=== PATIENT | female | born 1955 | race Caucasian/White ===

== ENCOUNTER 2017-11-27 08:19 | Outpatient (CLI) | payer OTHER, SELFPAY ==
[2017-11-27 08:56] LABS: Absolute Basophil Count 0.03 k/cumm (0.0-0.2); Absolute Eosinophil Count 0.07 k/cumm (0.0-0.7); Absolute Lymphocyte Count 1.65 k/cumm (1.2-3.4); Absolute Monocyte Count 0.38 k/cumm (0.11-0.7); Absolute Neutrophil Count 2.59 k/cumm (1.2-6.7); Basophils % 0.6; Eosinophils % 1.5; HCT 40.5 % (36.0-46.0); HGB 13.9 g/dL (12.0-15.5); Mean Corp. HGB Concentration 34.3 g/dL (32.0-36.0); Mean Corpuscular Volume 90.4 fL (80-95); Mean Platelet Volume 11.4 fL (8.0-11.0); Monocytes % 8.1; Neutrophils % 54.8; Platelet Count 261 x1000/uL (130-400); RBC 4.48 m/cumm (4.00-5.20); RBC Distribution Width 12.2 % (11.7-14.6); White Blood Cell Count 4.72 k/cumm (4.4-10.8)
[2017-11-27 09:01] LABS: ALT 19 U/L (12-78); AST 14 U/L (15-37); Alkaline Phosphatase 66 U/L (46-116); Anion Gap 4.3 mmol/L (3-11); BUN 18 mg/dL (7-18); Bilirubin, Total 0.6 mg/dL (0.2-1.0); CO2 29.7 mmol/L (21.0-32.0); CREATININE 0.67 mg/dL (0.55-1.02); Calcium 8.9 mg/dL (8.5-10.1); Chloride 104 mmol/L (98-107); Glucose 91 mg/dL (70-100); Potassium 4.1 mmol/L (3.5-5.1); Sodium 138 mmol/L (136-145); Total Protein 7.6 g/dL (6.4-8.2)
== END 2017-11-27 08:20 ==
PROVIDERS: PCP Emergency Medicine; Visit Provider Internal Medicine Medical Oncology
DX: C50.919 Malignant neoplasm of unspecified site of unspecified female breast (principal)
CPT/HCPCS: 36415; 80053; 85025

== ENCOUNTER 2017-12-16 09:41 | Outpatient (CLI) | payer OTHER, SELFPAY ==
[2017-12-16 13:19] LABS: TSH 0.68 uIU/mL (0.358-3.74)
== END 2017-12-16 10:01 ==
PROVIDERS: PCP Emergency Medicine; Visit Provider Emergency Medicine
DX: E03.9 Hypothyroidism, unspecified (principal)
CPT/HCPCS: 36415; 84443

== ENCOUNTER 2017-12-16 10:12 | Outpatient (REF) | payer OTHER, SELFPAY ==
--- NOTE | 2017-12-16 09:30 | PAPFT_PTH ---
PATIENT: Shahana Braga LOC: [facility] U#:[id number] AGE/SX: 62/F ROOM: RE12/16/[address]: Johnathon Anderson DO : 1955 BED: DIS: 12/16/2017 SPEC #: [id number] RECD: 12/16/17 12:57 STATUS: VERONICA BOWLES #: [id number] NAVEEN: 12/16/17 09:[address]: Johnathon Anderson DEPT: [facility]LY [facility], [facility] Cytology RECD BY: Ana Gonzalez Tissues: 1 - CX/ENDOCX FOR PAP SMEARS Procedures: PAP THIN PREP/[facility]VM Screening HPV DNA PROBE Comments: [id number]
== END 2017-12-16 10:32 ==
LOC: LBN 10:12
PROVIDERS: PCP Emergency Medicine; Visit Provider Emergency Medicine
DX: Z12.4 Encounter for screening for malignant neoplasm of cervix (principal); Z11.51 Encounter for screening for human papillomavirus (HPV)
CPT/HCPCS: 88142; 87624

== ENCOUNTER 2018-12-30 07:00 | Outpatient (CLI) | payer OTHER, SELFPAY ==
[2018-12-30 12:04] LABS: ALT 22 U/L (14-59); AST 15 U/L (15-37); Albumin 4.1 g/dL (3.4-5.0); Alkaline Phosphatase 62 U/L (46-116); Bilirubin, Direct 0.13 mg/dL (0.00-0.20); Bilirubin, Total 0.6 mg/dL (0.2-1.0); TSH 1.55 uIU/mL (0.36-3.74); Total Protein 7.3 g/dL (6.4-8.2)
== END 2018-12-30 07:20 ==
PROVIDERS: PCP Emergency Medicine; Visit Provider Emergency Medicine
DX: K75.81 Nonalcoholic steatohepatitis (NASH) (principal); E03.9 Hypothyroidism, unspecified
CPT/HCPCS: 36415; 80076; 84443

== ENCOUNTER 2019-08-30 02:03 | Outpatient (CLI) | payer OTHER, SELFPAY ==
--- NOTE | 2019-08-30 09:32 | DI.RAD_ITS ---
EXAM: XR LUMBAR SPINE COMPLETE CLINICAL HISTORY: Low back pain,M54.5 TECHNIQUE: COMPARISON: No exams were available for comparison FINDINGS: Five views were obtained. The intervertebral disc spaces appear mildly narrowed throughout the lumba r region. There are endplate hypertrophic changes at multiple levels, most prominent at T10-T11. Th ere are mild to moderate changes of facet hypertrophy particularly in lower lumbar spine. No evidenc e of spondylolysis or spondylolisthesis. Mild DJD both SI joints noted. Minimal left convex lumbar scoliosis noted. IMPRESSION: Mild degenerative changes as described above.
== END 2019-08-30 02:23 ==
PROVIDERS: PCP Emergency Medicine; Visit Provider Emergency Medicine
DX: M54.5 Low back pain (principal); M53.3 Sacrococcygeal disorders, not elsewhere classified; M47.816 Spondylosis without myelopathy or radiculopathy, lumbar region
CPT/HCPCS: 72110

== ENCOUNTER 2020-02-29 18:26 | Outpatient (REF) | payer OTHER, SELFPAY ==
[2020-02-29 13:25] LABS: Anion Gap 9.5 mmol/L (3-11); BUN 16 mg/dL (7-18); CO2 26.5 mmol/L (21.0-32.0); CREATININE 0.84 mg/dL (0.55-1.02); Calcium 9.7 mg/dL (8.5-10.1); Chloride 101 mmol/L (98-107); Glucose 103 mg/dL (74-106); Potassium 4.2 mmol/L (3.5-5.1); Sodium 137 mmol/L (136-145); TSH 2.11 uIU/mL (0.36-3.74)
== END 2020-02-29 18:46 ==
LOC: LBN 18:26
PROVIDERS: PCP Emergency Medicine; Visit Provider Emergency Medicine
DX: I10 Essential (primary) hypertension (principal); E03.9 Hypothyroidism, unspecified
CPT/HCPCS: 80048; 84443

== ENCOUNTER 2021-04-03 03:09 | Outpatient (CLI) | payer MEDICARE, SELFPAY ==
[2021-04-03 11:03] LABS: Anion Gap 9.2 mmol/L (3-11); BUN 20 mg/dL (7-18); CO2 31.8 mmol/L (21.0-32.0); CREATININE 0.9 mg/dL (0.55-1.02); Calcium 9.4 mg/dL (8.5-10.1); Calculated LDL 176 mg/dL (<100); Chloride 101 mmol/L (98-107); Cholesterol 275 mg/dL (<200); Glucose 105 mg/dL (74-106); HDL Cholesterol 67 mg/dL (40-60); Potassium 4.1 mmol/L (3.5-5.1); Sodium 142 mmol/L (136-145); TSH 2.83 uIU/mL (0.36-3.74); Triglyceride 164 mg/dL (<150)
== END 2021-04-03 03:10 | disposition home or self-care (01) ==
PROVIDERS: PCP Emergency Medicine; Visit Provider Emergency Medicine
DX: E03.9 Hypothyroidism, unspecified (principal); I10 Essential (primary) hypertension
CPT/HCPCS: 36415; 80048; 80061; 84443

== ENCOUNTER → 2021-11-16 00:03 | Outpatient (CLI) | payer MEDICARE, SELFPAY ==
--- NOTE | 2021-11-16 07:45 | DI.DEXA_ITS ---
Exam(s) XR DEXA BONE DENSITY W/WO SURENDRA EXAM: XR DEXA BONE DENSITY W/WO SURENDRA CLINICAL HISTORY: SCREENING FOR OSTEOPOROSIS IN POSTMENOPAUSAL WOMAN,Z78.0 TECHNIQUE: Holodelicious C densitometer analysis of left hip, lumbar spine and left forearm. COMPARISON: CR XR LUMBAR SPINE COMPLETE from 08/30/2019 FINDINGS: Lateral view of the thoracic and lumbar spine shows no evidence of compression fractures. Bone mineral density measurements of the lumbar spine correspond to a total T-score of 0.5, in the n ormal range. Bone mineral density measurements of the left hip correspond to a total T-score of -0.7. The femora l neck T-score is -1.4, in the osteopenic range.. The left forearm bone mineral density measurements correspond to a T-score of the distal 3rd of -1.7, in the osteopenic range. . IMPRESSION: Osteopenia of the left forearm and left hip. Normal bone mineral density of the lumbar spine.
== END ==
PROVIDERS: PCP Nurse Practitioner; Visit Provider Nurse Practitioner
DX: Z78.0 Asymptomatic menopausal state (principal); Z13.820 Encounter for screening for osteoporosis; M85.88 Other specified disorders of bone density and structure, other site
CPT/HCPCS: 77080

== ENCOUNTER → 2021-12-27 03:02 | Outpatient (CLI) | payer MEDICARE, SELFPAY ==
--- NOTE | 2021-12-27 07:45 | DI.RAD_ITS ---
Exam(s) XR ANKLE RT COMPLETE EXAM: XR ANKLE RT COMPLETE CLINICAL HISTORY: continued pain medial malleolus after fall,m25.571. TECHNIQUE: 2D digital imaging was performed of the right ankle. Three images were obtained. AP, la teral and oblique views were obtained. COMPARISON: No exams were available for comparison FINDINGS: BONES: No acute fracture is present. No bony destructive lesion is seen. There is a moderate plantar calcaneal spur. Calcification is seen at the Achilles insertion site. Two orthopedic screws are se en in the distal aspect of the 1st metatarsal. JOINTS: The ankle mortise is normally aligned. Mild degenerative changes are seen at the ankle. SOFT TISSUE: Normal. IMPRESSION: No acute abnormality. DATA REPOSITORY: RADIATION DOSE DELIVERED:
--- NOTE | 2021-12-27 07:45 | DI.RAD_ITS ---
Exam(s) XR CERVICAL SP COMP W FLEX/EXT EXAM: XR CERVICAL SP COMP W FLEX/EXT CLINICAL HISTORY: c/o neck pain, stiffness after fall,m54.2. TECHNIQUE: 2D digital imaging was performed. Nine images were obtained. AP, odontoid, lateral, flexi on, extension and bilateral oblique images were obtained. COMPARISON: No exams were available for comparison FINDINGS: The odontoid is intact. The lateral masses are well aligned. There is normal alignment of the cervi [place] spine. Degenerative disc disease is seen at C5-C6. There is facet arthropathy throughout the cer vical spine, right greater than left. The findings are most marked at C3-4 and C4-C5. No acute fract ure or subluxation is present. No significant neural foraminal stenosis is present. The cervical thor acic junction is not well visualized. The prevertebral soft tissues are unremarkable. Lung apices ar e clear. IMPRESSION: Moderate cervical spondylosis. DATA REPOSITORY: RADIATION DOSE DELIVERED:
== END ==
PROVIDERS: PCP Nurse Practitioner; Visit Provider Nurse Practitioner Family
DX: M25.571 Pain in right ankle and joints of right foot (principal); M47.812 Spondylosis without myelopathy or radiculopathy, cervical region
CPT/HCPCS: 72052; 73610

== ENCOUNTER 2022-01-16 02:19 | Outpatient (CLI) | payer MEDICARE, SELFPAY ==
[2022-01-16 13:02] LABS: Calculated LDL 159 mg/dL (<100); Cholesterol 257 mg/dL (<200); HDL Cholesterol 69 mg/dL (40-60); Triglyceride 145 mg/dL (<150)
== END 2022-01-16 02:20 | disposition home or self-care (01) ==
LOC: LOS 02:19
PROVIDERS: PCP Nurse Practitioner; Visit Provider Nurse Practitioner
DX: E03.9 Hypothyroidism, unspecified (principal)
CPT/HCPCS: 36415; 80061

== ENCOUNTER 2022-01-23 11:38 | Outpatient (CLI) | payer MEDICARE, SELFPAY ==
--- NOTE | 2022-01-23 11:30 | RT.EKG_ITS ---
APPROVED REPORT Exam: Resting ECG Reason for Exam: Fluttering heart Patient Location: O HR:62 bpm ECG Measurements Heart Rate 62 AXIS IL 189 P 50 QRSd 104 QRS 50 QT 448 T 36 QTc 455 Conclusion Sinus rhythm...normal P axis, V-rate 50- 99 Normal Electrocardiogram
== END 2022-01-23 11:39 | disposition home or self-care (01) ==
LOC: DI.CM 11:39
PROVIDERS: PCP Nurse Practitioner; Visit Provider Nurse Practitioner Family
DX: I49.8 Other specified cardiac arrhythmias (principal)
CPT/HCPCS: 93010

== ENCOUNTER 2022-01-24 10:17 | Outpatient (RCR) | payer MEDICARE, SELFPAY ==
--- NOTE | 2022-01-24 10:15 | HOLTER_ITS ---
APPROVED REPORT Conclusion This is a 48-hour Holter monitor Predominant rhythm is sinus with an average heart rate of 71. Minimum was 61, maximum 98 There were very rare atrial and ventricular ectopic beats There was 1 supraventricular triplet There was no atrial fibrillation, no high-grade AV block, no pauses greater than 3 seconds
== END 2022-01-28 23:59 | disposition home or self-care (01) ==
LOC: CARDOPNVT 10:17
PROVIDERS: PCP Nurse Practitioner; Visit Provider Nurse Practitioner Family
DX: R00.2 Palpitations (principal); I49.8 Other specified cardiac arrhythmias
CPT/HCPCS: 93227; 93225; 93226

== ENCOUNTER 2022-04-24 21:49 | Outpatient (REF) | payer MEDICARE, SELFPAY ==
[2022-04-24 23:18] LABS: Anion Gap 11.6 mmol/L (3-11); BUN 16 mg/dL (7-18); CO2 26.4 mmol/L (21.0-32.0); CREATININE 0.8 mg/dL (0.55-1.02); Calcium 10.4 mg/dL (8.5-10.1); Chloride 100 mmol/L (98-107); Estimated GFR 81.21 (mL/min/1.73m2); Glucose 99 mg/dL (74-106); Sodium 138 mmol/L (136-145)
== END 2022-04-24 21:50 | disposition home or self-care (01) ==
LOC: LBN 21:49
PROVIDERS: PCP Nurse Practitioner Family; Visit Provider Nurse Practitioner Family
DX: I10 Essential (primary) hypertension (principal)
CPT/HCPCS: 80048

== ENCOUNTER 2022-05-08 09:34 | Outpatient (CLI) | payer MEDICARE, SELFPAY ==
--- NOTE | 2022-05-08 09:00 | DI.RAD_ITS ---
Exam(s) XR ANKLE RT COMPLETE XR FOOT RT COMPLETE EXAM: XR FOOT RT COMPLETE CLINICAL HISTORY: R ankle pain, possible tarsal tunnel, M25.571. TECHNIQUE: 2D digital imaging was performed of the right foot. Six images were obtained. AP, obliq ue and lateral views were obtained. COMPARISON: CR XR ANKLE RT COMPLETE from 12/27/2021 FINDINGS: BONES: No acute fracture is present. No bony destructive lesion is seen. Stable postsurgical changes are seen in the 1st metatarsal bone. Degenerative changes are seen at the 1st metatarsophalangeal sheela int with joint space narrowing and bony hypertrophy. There is a large plantar calcaneal spur. There is a small enthesophyte at the posterior calcaneus. JOINTS: No dislocation present. The ankle joint is well maintained. The bones are normally mineraliz ed and intact. SOFT TISSUE: Normal. IMPRESSION: 1. No acute abnormality. 2. Degenerative changes of the right foot. 3. Stable postsurgical changes of the right foot. DATA REPOSITORY: RADIATION DOSE DELIVERED:
== END 2022-05-08 09:54 ==
LOC: DI 09:36
PROVIDERS: PCP Nurse Practitioner Family; Visit Provider Podiatrist Foot & Ankle Surgery
DX: M19.071 Primary osteoarthritis, right ankle and foot
CPT/HCPCS: 73610; 73630

== ENCOUNTER 2023-01-09 01:05 | Outpatient (CLI) | payer MEDICARE, SELFPAY ==
[2023-01-09 13:01] LABS: ALT 34 U/L (14-59); AST 18 U/L (15-37); Albumin 3.9 g/dL (3.4-5.0); Alkaline Phosphatase 62 U/L (46-116); Anion Gap 7.6 mmol/L (3-11); BUN 16 mg/dL (7-18); Bilirubin, Total 0.4 mg/dL (0.2-1.0); CO2 27.4 mmol/L (21.0-32.0); CREATININE 0.8 mg/dL (0.55-1.02); Calcium 9.5 mg/dL (8.5-10.1); Calculated LDL 75 mg/dL (<100); Chloride 102 mmol/L (98-107); Cholesterol 167 mg/dL (<200); Estimated GFR 80.71 (mL/min/1.73m2); Glucose 104 mg/dL (74-106); HDL Cholesterol 59 mg/dL (40-60); Potassium 3.8 mmol/L (3.5-5.1); Sodium 137 mmol/L (136-145); Total Protein 7.6 g/dL (6.4-8.2); Triglyceride 168 mg/dL (<150)
== END 2023-01-09 01:06 | disposition home or self-care (01) ==
LOC: LOS 01:05
PROVIDERS: PCP Nurse Practitioner Family; Visit Provider Nurse Practitioner Family
DX: E78.5 Hyperlipidemia, unspecified (principal)
CPT/HCPCS: 36415; 80053; 80061

== ENCOUNTER 2023-09-15 09:19 | Outpatient (CLI) | payer MEDICARE, SELFPAY ==
[2023-09-15 14:23] LABS: Abs Immature Grans 0.02 10^3/uL (0.0-0.06); Absolute Basophil Count 0.11 10^3/uL (0.0-0.2); Absolute Eosinophil Count 1.13 10^3/uL (0.0-0.7); Absolute Lymphocyte Count 2.29 10^3/uL (1.2-3.4); Absolute Monocyte Count 0.51 10^3/uL (0.1-0.8); Absolute Neutrophil Count 5.45 10^3/uL (1.2-6.7); Basophils % 1.2 %; Eosinophils % 11.9 %; HCT 39.2 % (36.0-46.0); Immature Grans % 0.2 %; Lymphocytes % 24.1 %; MCH 30.1 pg (27.0-33.0); MCHC 33.2 % (32.0-36.0); MCV 91 fL (80-95); MPV 10.9 fL (8.0-11.0); Monocytes % 5.4 %; Neutrophils % 57.2 %; Platelet Count 261 10^3/uL (130-400); RBC 4.32 10^6/uL (3.93-5.22); RDW 12.6 % (11.7-14.6); RDW-SD 42.2 fL; WBC 9.51 10^3/uL (4.4-10.8)
[2023-09-15 14:32] LABS: Bilirubin Negative (Negative); Blood Negative (Negative); Clarity Sl Cloudy (Clear); Glucose Negative (Negative); Ketones Trace mg/dL (Negative); Leukocyte Esterase Negative (Negative); Nitrite Negative (Negative); Specific Gravity 1.025 (1.005-1.025)
[2023-09-15 14:52] LABS: ALT 79 U/L (14-59); AST 41 U/L (15-37); Albumin 3.8 g/dL (3.4-5.0); Alkaline Phosphatase 91 U/L (46-116); Anion Gap 9.4 mmol/L (3-11); BUN 10 mg/dL (7-18); Bilirubin, Total 0.7 mg/dL (0.2-1.0); C-Reactive Protein 15.62 mg/dL (<or=0.5); CO2 29.6 mmol/L (21.0-32.0); CREATININE 0.8 mg/dL (0.55-1.02); Calcium 9.3 mg/dL (8.5-10.1); Chloride 101 mmol/L (98-107); Estimated GFR 80.21 (mL/min/1.73m2); Glucose 108 mg/dL (74-106); Potassium 4.2 mmol/L (3.5-5.1); Sodium 140 mmol/L (136-145)
== END 2023-09-15 09:20 | disposition home or self-care (01) ==
LOC: LBO 09-16 09:19
PROVIDERS: PCP Nurse Practitioner Family; Visit Provider Family Medicine
DX: R10.30 Lower abdominal pain, unspecified (principal); E03.9 Hypothyroidism, unspecified
CPT/HCPCS: 36415; 80053; 81003; 84443; 85025; 86140

== ENCOUNTER → 2023-09-16 10:06 | Outpatient (CLI) | payer MEDICARE, SELFPAY ==
--- NOTE | 2023-09-16 09:15 | DI.CT_ITS ---
Exam(s) CT ABDOMEN PELVIS W EXAM: CT ABDOMEN PELVIS W CLINICAL HISTORY: R/O diverticulitis R10.30 LOWER ABD PAIN. TECHNIQUE: Imaging Protocol: Axial computed tomography images with coronal and sagittal reformatted images were created and reviewed CONTRAST MATERIAL: Intravenous: Omnipaque-350 100cc Oral: Yes. Oral contrast was administered for bowel opacification COMPARISON: No exams were available for comparison FINDINGS: VISUALIZED LUNG BASES: No nodules nor pleural effusions evident. ABDOMEN: There is no ascites. LIVER: Liver is hypodense implying steatosis. There no discrete focal hepatic lesions. No dilated i ntrahepatic ducts. GALLBLADDER/BILIARY: No obvious gallbladder pathology. CBD is not dilated. PANCREAS: No evidence of pancreatic mass nor dilatation of the pancreatic duct. SPLEEN: Spleen is not enlarged. No obvious intrasplenic lesions. Splenic and portal veins are paten t. ADRENALS: There are no significant adrenal masses. KIDNEYS:Small benign cyst in superior aspect of the left kidney noted. Does not require further work up. No solid renal masses. No calculi nor hydronephrosis.. ABDOMINAL AORTA: Abdominal aorta is not enlarged. LYMPH NODES:There is no retroperitoneal nor paraaortic adenopathy. ABDOMINAL WALL: No evidence of significant anterior abdominal wall nor inguinal hernia. PELVIS: GI: No evidence of appendicitis.There is sigmoid diverticuli and there is in evidence of acute divert iculitis. The culprit diverticulum is on the posterior wall of the sigmoid and there is abundant kayleigh rounding streaking but no free air nor abscess at this time. LYMPH NODES: There is no intrapelvic nor inguinal adenopathy. REPRODUCTIVE: Uterus and adnexal regions appear unremarkable. URINARY BLADDER: Mild uniform thickening of the urinary bladder wall. No masses nor clots nor is int raluminal calculi and no gas within the lumen to suggest fistulous communication from the affected si gmoid. OSSEOUS: No fractures and no significant osseous lesions. IMPRESSION: 1. Findings are consistent with significant acute diverticulitis of the sigmoid. There is abundant s treaking around the culprit sigmoid diverticulum but no formed abscess. No free air. RADIATION DOSE DELIVERED: 1,244.86mGy.cm Total DLP DATA REPOSITORY: All CT scans at this facility are submitted to the National Radiology Data Registry (NRDR) Dose Index Registry (DIR) with the [employer] (ACR). RADIATION OPTIMIZATION: All CT scans at this facility use at least one of these dose optimization te chniques: automated exposure control; mA and/or kV adjustment per patient size (includes targeted exa ms where dose is matched to clinical indication); or iterative reconstruction.
[2023-09-16] MEDS: Omnipaque 350 MG/ML 500 ML BTL-Imaging package 100 ML IJ (12:45)
[2023-09-16] MEDS: Normal Saline - Diluent 50 ML VIAL IJ (12:47)
== END ==
PROVIDERS: PCP Nurse Practitioner Family; Visit Provider Family Medicine
DX: K57.32 Diverticulitis of large intestine without perforation or abscess without bleeding (principal)
CPT/HCPCS: 74177

== ENCOUNTER 2023-11-18 21:32 | Outpatient (REF) | payer MEDICARE, SELFPAY ==
[2023-11-18 22:58] LABS: Hemoglobin A1C 5.8 % (<5.7)
[2023-11-18 23:04] LABS: ALT 30 U/L (14-59); AST 19 U/L (15-37); Albumin 4.3 g/dL (3.4-5.0); Alkaline Phosphatase 65 U/L (46-116); Anion Gap 10.4 mmol/L (3-11); BUN 16 mg/dL (7-18); Bilirubin, Total 0.66 mg/dL (0.2-1.0); CO2 27.6 mmol/L (21.0-32.0); CREATININE 0.8 mg/dL (0.55-1.02); Calcium 9.6 mg/dL (8.5-10.1); Calculated LDL 113 mg/dL (<100); Chloride 103 mmol/L (98-107); Cholesterol 223 mg/dL (<200); Estimated GFR 80.21 (mL/min/1.73m2); Glucose 98 mg/dL (74-106); HDL Cholesterol 71 mg/dL (40-60); Sodium 141 mmol/L (136-145); Total Protein 7.3 g/dL (6.4-8.2); Triglyceride 195 mg/dL (<150)
== END 2023-11-18 21:33 | disposition home or self-care (01) ==
LOC: NCHCN 21:32
PROVIDERS: PCP Nurse Practitioner Family
DX: E78.5 Hyperlipidemia, unspecified (principal); R73.9 Hyperglycemia, unspecified
CPT/HCPCS: 80053; 80061; 83036

== ENCOUNTER → 2023-12-26 10:10 | Outpatient (BNVA) | payer MEDICARE, SELFPAY | PROVIDERS: PCP Nurse Practitioner Family; Referring Provider Nurse Practitioner Family; Visit Provider Physical Therapy Assistant | DX: Z12.11 Encounter for screening for malignant neoplasm of colon (principal); Z86.010 Personal history of colon polyps ==

== ENCOUNTER 2023-12-26 14:46 | Outpatient (CLI) | payer MEDICARE, SELFPAY ==
[2023-12-26 15:29] LABS: D-Dimer 368 ng/mlFEU (<500)
== END 2023-12-26 14:47 | disposition home or self-care (01) ==
LOC: LBO 14:48
PROVIDERS: PCP Nurse Practitioner Family; Visit Provider Nurse Practitioner Family
DX: Z12.11 Encounter for screening for malignant neoplasm of colon (principal)
CPT/HCPCS: 85379

== ENCOUNTER 2024-01-16 09:11 | Day surgery (SDC) | payer MEDICARE, SELFPAY ==
--- NOTE | 2024-01-15 19:34 | PDOC.DSDIS_ITS ---
Date of service: 01/16/24 Time of Service: 11:14 Discharge Plan Disposition Patient Disposition: Home Condition: Good Discharge Details Reason For Visit: screening colonoscopy Attending Provider: Fan Hutson Primary Care Provider: Augustine Vidal Home Meds and New Rx's Prescriptions: Continued rosuvastatin 20 mg tablet 20 mg PO DAILY Qty: 90 4RF L-theanine capsule 200 mg PO turmeric root extract 500 mg tablet 1,000 mg PO cholecalciferol (vitamin D3) 10 mcg (400 unit) capsule 10 mcg PO DAILY calcium carbonate [Calcium 600] 600 mg calcium (1,500 mg) tablet 1,200 mg PO .take 1/2 pill daily Probiotic 3 billion cell capsule See Rx Instructions PO DAILY Rx Instructions: name of the product is [facility] Women's 50+ Daily Form (gkb) 1 EACH tablet 1 ea PO DAILY Patient Comments: 07/24/16 takes prn.md levothyroxine 75 mcg tablet See Rx Instructions .ROUTE .COMPLEX Qty: 90 0RF Dose Instruction: TAKE 1 TABLET DAILY Rx Instructions: TAKE 1 TABLET DAILY lisinopril 10 mg tablet 10 mg PO DAILY Qty: 90 4RF hydrochlorothiazide 12.5 mg tablet See Rx Instructions .ROUTE .COMPLEX Qty: 90 3RF Dose Instruction: TAKE 1 TABLET DAILY Rx Instructions: TAKE 1 TABLET DAILY metoprolol succinate [Toprol XL] 25 mg tablet extended release 24 hr 25 mg PO DAILY Qty: 90 3RF Discontinued bisacodyl [Dulcolax (bisacodyl)] 5 mg tablet,delayed release (DR/EC) 5 mg PO ONCE Qty: 4 0RF Rx Instructions: Take per colonoscopy instructions provided by ordering providers office polyethylene glycol 3350 17 gram/dose powder 17 g PO ONCE Qty: 238 0RF Rx Instructions: Take per colonoscopy instructions provided by ordering providers office Discharge Instructions Instructions: Colon polyps, Diverticulosis Additional Instructions: Dot, I hope you are comfortable during the procedure today. I really enjoyed talking to you beforehand, and hope you have a great day after this. I did find and removed 2 polyps today. Both of these are small, and neither one of them appears worrisome to the naked eye. Similar to your previous colonoscopies, these will be sent off for the pathologist to review. We will use that information to guide the timing of your next colonoscopy. Incidentally, he also have some diverticulosis. These are little pockets are weak spots in the wall of the colon. They can get infected or inflamed, and when that occurs, we refer to it as diverticulitis. Patients typically experience that a sharp left-sided abdominal pain that sometimes radiates across the middle. Usually patients feel pretty ill when that happens. Often times is treated with antibiotics, but diet and bowel rest can also be very helpful and effective. I attached some basic information here about colon polyps as well as diverticulosis. If you have any questions at all, please do not hesitate to ask, otherwise let you know once we have the results. 1. If tolerated, consume a soft, low fiber diet for 1-2 days. 2. Do not drive, drink alcohol, operate machinery, make critical decisions, or do activities that require coordination or balance for 24 hours. 3. Because air was put into your colon during the procedure, expelling air from your rectum (passing gas or farting) is normal. 4. You may not have a bowel movement for 1-3 days because of the colonoscopy prep. This is normal. 5. Go directly to the emergency room if you notice any of the following: Develop chills (warm to touch), or if you have a thermometer and your temperature is above 101 Difficulty breathing or difficultly swallowing Persistent vomiting Severe abdominal pain, other than gas cramps Severe chest pain Black, tarry stools Any bleeding ? exceeding one tablespoon 6. Call your physician if the site where your intravenous was started becomes red, swollen, painful, and warm to touch. 7. Your physician has reviewed your pre-procedure medications. Please continue to take those medications as previously ordered. You will be given specific information/education regarding any changes to your medications before leaving. Activity:: Activity as Tolerated Diet:: As Tolerated Discharge Orders Discharge Orders: Discharge Order (Routine); Ordered 01/15/24 Ordered By: Fan Hutson DS: Diagnosis Discharge Diagnosis (1) Encounter for screening colonoscopy: Asessment and Plan: Follow-up on polypectomy results
--- NOTE | 2024-01-15 19:36 | W.COLOREPORT ---
Date of service: 01/16/24 Time of Service: 11:18 Colonoscopy Report Date of procedure: 01/16/24 Pre-op diagnosis general: screening colonoscpoy Procedure: colonoscopy Surgeon: Fan Hutson Anesthesia Type: General:No Airway Complications: None Disposition: same day Indications: Shahana is a 68 year old woman with a history of adenomatous polyps who needs her next screening colonoscopy Prep: Miralax/Dulcolax Procedure Start Time: 10:46 Procedure End Time: 11:07 Retraction Time: 10 Findings: Sigmoid diverticulosis, 0.25 cm polyp at 45 cm, 0.5 cm polyp at 35 cm Procedure Description: After the induction of anesthesia, and with the patient in left lateral decubitus position, I began by performing an external anorectal exam.? Perineum and skin were normal, as was the anal verge.?? Next, I performed a digital rectal exam.? I did appreciate any abnormal findings.? Next, I advanced a colonoscope into the rectal vault.? I performed retroflexion.? I this appeared normal.? Using insufflation, I then advanced the colonoscope beyond the rectal folds and into the sigmoid colon before advancing towards the cecum.? There is some sigmoid diverticulosis. The quality of the prep was outstanding.? The scope was noted to be in the cecum by identification of the ileocecal valve and appendiceal orifice.? I then began withdrawing the colonoscope using repeated irrigation as necessary for full evaluation of the colonic mucosa. Around 45 cm from the anal verge I identified a 0.25 cm polyp. ?It appeared flat in character. ?I was able to remove this with a cold forcep polypectomy. ?I examined the site, and there was minimal bleeding. ?Once this was completed, I continued to withdraw the scope and examine the remainder of the colonic mucosa.? I found another polyp at 35 cm from the anal verge. This was a little larger, may be closer to 0.5 cm. This was also a little more pedunculated. This was removed in piecemeal with cold forceps. Resection was complete. There was minimal bleeding. Once the scope was withdrawn to the level of the rectum, great care was taken to examine portions of the rectal folds.? Finally, the scope was withdrawn and the patient was brought to the same-day surgery recovery unit as the anesthetic wore off. ?The findings and instructions were shared with the patient prior to discharge. [place] Bowel Prep [place] Bowel Prep Right Colon: 3 Left Colon: 3 Transverse Colon: 3 Total Score: 9
[2024-01-16 09:45] VITALS: BP 122/74; PULSE 68; RESP 16; TEMP 36.9; O2SAT 99
--- NOTE | 2024-01-16 10:03 | ANES.PREOP_ITS ---
General Info Date of Service Date Performed: 01/16/24 Height: 5 ft 5 in Weight: 88.6 kg Body Mass Index (BMI): 32.5 Surgical Procedure: Operation Date: 01/16/24 10:35 Proposed Procedure Side Surgeon elida Hutson MD Meds Allergies and Home Medications Allergies Allergy/AdvReac Type Severity Reaction Status Date / Time amoxicillin Allergy Intermediate HIVES/RASH Verified 01/16/24 09:37 Penicillins Allergy Intermediate Skin Rash Verified 01/16/24 09:37 Sulfa (Sulfonamide Allergy Intermediate Hives Verified 01/16/24 09:37 Antibiotics) Home Medication ?Medication ?Instructions ?Recorded multivitamin with [id number] 1 ea PO DAILY 06/12/12 400 mcg-120 mg tablet (Women's 50+ Daily Formula (with ginkgo)) L-theanine 200 mg PO 09/27/21 turmeric root extract 500 mg tablet 1,000 mg PO 09/27/21 cholecalciferol (vitamin D3) 10 10 mcg PO DAILY 04/24/22 mcg (400 unit) capsule lactobacillus combination no.4 3 See Rx Instructions PO DAILY 05/08/22 billion cell capsule (Probiotic) levothyroxine 75 mcg tablet See Rx Instructions .Route 04/01/23 .COMPLEX #90 tabs calcium carbonate (Calcium 600) 1,200 mg PO .take 1/2 pill daily 08/18/23 rosuvastatin 20 mg tablet 20 mg PO DAILY #90 tabs 08/18/23 lisinopril 10 mg tablet 10 mg PO DAILY #90 tabs 11/13/23 hydrochlorothiazide 12.5 mg tablet See Rx Instructions .Route 11/18/23 .COMPLEX #90 tabs metoprolol succinate 25 mg 25 mg PO DAILY #90 tab-caps 12/08/23 tablet,extended release 24 hr (Toprol XL) Current Visit Medications: Current Medications Generic Name Dose Route Start Last Admin Trade Name Freq PRN Reason Stop Dose Admin Hyoscyamine Sulfate 0.125 mg 01/15/24 19:37 Hyoscyamine 0.125 Mg Sl/Oral/Chew SL 02/14/24 19:36 DIRECTED PRN Ringer's Solution 1,000 mls @ 80 mls/hr 01/16/24 06:00 IV 02/14/24 23:59 INFUSION JAYLYN IV Miscellaneous Supplies 1 each 01/16/24 06:00 Iv Access IV 02/14/24 23:59 DIRECTED [facility] Ondansetron HCl 4 mg 01/15/24 19:37 Ondansetron 4 Mg/2 Ml Vial IVP 02/14/24 19:36 Q4H PRN PRN Nausea / Vomiting Sodium Chloride 0 ml 01/16/24 06:00 Normal Saline Flush 10 Ml Syr IV 02/14/24 23:59 PRN PRN Sodium Chloride 0 ml 01/16/24 06:00 Normal Saline 10 Ml Vial IJ 02/14/24 23:59 DIRECTED PRN Sterile Water 0 ml 01/16/24 06:00 Water,Injection,Sterile 10 Ml Vial IJ 02/14/24 23:59 DIRECTED PRN PFSH Active Problems Active Problems: Problem Status Onset Code Right leg pain Acute M79.604 Acute diverticulitis of intestine Acute K57.92 Raynauds phenomenon Acute I73.00 Lower abdominal pain Acute R10.30 Screening for colorectal cancer Acute Z12.11, Z12.12 Depression Chronic F32.A Low back pain Acute M54.5 Essential hypertension Acute 05/07/13 I10 Hypothyroidism Acute E03.9 FRYE (nonalcoholic steatohepatitis) Acute 05/10/13 K75.81 Dysphagia Acute R13.10 ROSENDO on CPAP Chronic G47.33, Z99.89 Hyperlipidemia Acute E78.5 Neck pain Acute M54.2 Right ankle pain Acute M25.571 Tarsal tunnel syndrome Acute G57.50 Left otitis externa Acute H60.92 Medical History Medical History Encounter for screening colonoscopy Polyp of colon, adenomatous 07/11/12 DR. PRABHA KEARNEY; TUBULAR ADENOMA 09/30/18 DR. PRABHA KEARNEY; TUBULAR ADENOMA Malignant neoplasm of female breast right breast; + DCIS ; radiation; IV Herceptin q/3 weeks Surgical History Surgical History History of arthroscopy of knee L knee, per pt History of bilateral ligation of fallopian tubes Reconstruction BREAST; S/P LUMPECTOMY FOR CA Endometrial Ablation Colonoscopy - IV Sedation (07/10/12) DR. PRABHA KEARNEY; TUBULAR ADENOMA Breast, Lumpectomy (~03/2007) Bilateral salpingectomy with oophorectomy BUNIONECTOMY R. foot, per pt. Arthroplasty of knee LEFT 01/14/24: Pt denies. -BR Tobacco Smoking/Tobacco Use Status: Never Passive smoking exposure: Yes Alcohol Alcohol Intake: current Alcohol intake frequency: 0-2 drinks per day Alcohol type: wine and hard liquor Substance Use Substance use: Never Substance use type: does not use Vital Signs and Lab Results Vital Signs Most Recent Vital Signs in EMR: Most Recent Vital Signs Temp Pulse Resp BP Pulse Ox 36.9 C 68 16 122/74 99 01/16/24 09:45 01/16/24 09:45 01/16/24 09:45 01/16/24 09:45 01/16/24 09:45 Lab Results Blood Type / Crossmatch: No Data to Display Complete Blood Count: No Data to Display Complete Metabolic Panel: No Data to Display Liver Function Panel: No Data to Display Coagulation Panel: D-Dimer 368 ng/mlFEU (<500) 12/26/23 14:50 Cardiac Panel: No Data to Display Arterial Blood Gas: No Data to Display Venous Blood Gas: No Data to Display Pancreas Panel: No Data to Display Thyroid Panel: No Data to Display Infectious Disease: No Data to Display Blood Cultures: No Data to Display Toxicology Panel: No Data to Display Imaging and Studies Imaging and Studies Study information below may be from another EMR and interpreted by another provider. Please see original notes in EMR for more complete details. EKG Summary: 01/23/22: Exam: Resting ECG Reason for Exam: Fluttering heart Patient Location: O HR:62 bpm ECG Measurements Heart Rate 62 AXIS MN 189 P 50 QRSd 104 QRS 50 QT 448 T36 QTc 455 Conclusion Sinus rhythm...normal P axis, V-rate 50- 99 Normal Electrocardiogram Anesthesia Assessment and Plan Anesthesia History Personal History: No History of Anesthesia Complications Family History: No Family History of Anesthesia Complications Exercise Tolerance Exercise Tolerance: Metabolic Equivalents>4 Pertinent Negatives Pertinent Negatives: No Symptoms of GERD, No Major Cardiovascular Symptoms or Complaints and No Major Pulmonary Symptoms or Complaints Cardiac & Pulmonary Exam Cardiac Exam: Normal S1/S2 Heart Sounds Pulmonary Exam: Clear Bilateral Breath Sounds Implantable Cardiac Device Does patient have a Pacemaker or an ICD?: No Airway Exam Known Difficult Airway: No Mallampati Class: 1 Mouth Opening: Normal (> 3cm) Thyromental Distance: Greater than 3 cm Neck Range of Motion: Full ROM Neck Circumference: Normal Teeth Condition: Normal Dentition ASA Classification ASA Score: ASA 3 Emergency Case?: No NPO Status NPO Status: NPO Clears >2 hours, Solids >8 hours Anesthesia Plan Resuscitation Status: Full Code Anesthesia Technique: General Anesthesia Airway Planned: Natural Airway Monitors Used: Standard Monitors
[2024-01-16 10:07] VITALS: BMI 32.5
[2024-01-16] MEDS: Lactated Ringers 1,000 ML 80 ML IV (10:09)
--- NOTE | 2024-01-16 11:00 | BOWEL_PTH ---
PATIENT: Shahana Braga LOC: [facility] U#:[id number] AGE/SX: 68/F ROOM: RE01/16/[address]: Fan Hutson MD : 1955 BED: DIS: 01/16/2024 SPEC #: [id number] RECD: 01/16/24 12:49 STATUS: VERONICA REQ #: [id number] NAVEEN: 01/16/24 11:[address]: Fan Hutson DEPT: Surgical Specimen RECD BY: Ana Gonzalez ENTERED: 01/16/24 12:50 SP TYPE: Bowel OTHR DR: Augustine Leigh DNP Tissues: 1 - BIOPSY BOWEL 2 - BIOPSY BOWEL Procedures: GROSS AND MICRO LEVEL 4 Comments: [id number]
[2024-01-16 11:12] VITALS: BP 147/78; PULSE 77; RESP 18; TEMP 36.8; O2SAT 97
--- NOTE | 2024-01-16 11:24 | W.ANESPOSTOP ---
Postoperative Evaluation Date, Time and Location Date Performed: 01/16/24 Time Performed: 11:15 Patient Location: Day Surgery Unit Vital Signs Most Recent Imported Vital Signs: Most Recent Vital Signs Temp Pulse Resp BP Pulse Ox 36.8 C 77 18 147/78 H 97 01/16/24 11:12 01/16/24 11:12 01/16/24 11:12 01/16/24 11:12 01/16/24 11:12 Pain Score Most Recent Pain Score: Most Recent Pain Score Pain Level 0 01/16/24 11:12 Assessment Mental Status: Awake (Alert & Oriented to Patient Baseline) Airway and Respiratory Function: Patent airway with normal (patient baseline) respiratory exam Cardiovascular Function: Hemodynamically Stable Hydration Status: Adequately Hydrated Nausea & Vomiting: No Nausea or Vomiting Pain: Pt. Denies Any Pain Peripheral Nerve Block: Patient did not receive a nerve block
[2024-01-16 11:31] VITALS: BP 157/85; PULSE 78; RESP 18; TEMP 36.8; O2SAT 97
== END 2024-01-16 11:45 | disposition home or self-care (01) ==
LOC: SUR 09:11
PROVIDERS: PCP Nurse Practitioner Family; Visit Provider Surgery
PROC: 0DJD8ZZ Inspection of Lower Intestinal Tract, Via Natural or Artificial Opening Endoscopic (ICD-10-PCS; CPT 45378; principal; 2024-01-16 10:30)
DX: Z12.11 Encounter for screening for malignant neoplasm of colon (principal); D12.5 Benign neoplasm of sigmoid colon; K57.30 Diverticulosis of large intestine without perforation or abscess without bleeding; F32.A Depression, unspecified; I10 Essential (primary) hypertension; Z86.0101 Personal history of adenomatous and serrated colon polyps
CPT/HCPCS: 45380; 88305; J0360; J1920; J2704

== ENCOUNTER 2024-09-28 02:31 | Outpatient (CLI) | payer MEDICARE, SELFPAY ==
--- NOTE | 2024-09-28 05:45 | DI.RAD_ITS ---
Exam(s) XR FOOT RT COMPLETE EXAM: XR FOOT RT COMPLETE CLINICAL HISTORY: R FOOT PAIN,m79.671. TECHNIQUE: 2D digital imaging was performed. Three views. COMPARISON: CR XR FOOT RT COMPLETE from 05/08/2022 FINDINGS: BONES: No acute fracture is present. No bony destructive lesion is seen. Two screws are again noted in the distal 5th metatarsal. Heel spurs. JOINTS: No dislocation present. There are mild degenerative changes of the 1st MTP joint. SOFT TISSUE: Normal. IMPRESSION: Stable degenerative changes at the 1st MTP joint. Heel spurs. DATA REPOSITORY: RADIATION DOSE DELIVERED:
== END 2024-09-28 02:51 ==
PROVIDERS: PCP Nurse Practitioner Family; Visit Provider Podiatrist
DX: M19.071 Primary osteoarthritis, right ankle and foot (principal); M77.31 Calcaneal spur, right foot
CPT/HCPCS: 73630

== ENCOUNTER → 2024-11-02 09:09 | Outpatient (BNVA) | payer MEDICARE, SELFPAY | PROVIDERS: PCP Nurse Practitioner Family; Referring Provider Nurse Practitioner Family; Visit Provider Podiatrist | DX: M72.2 Plantar fascial fibromatosis (principal); M67.01 Short Achilles tendon (acquired), right ankle; L60.0 Ingrowing nail; M79.671 Pain in right foot; M79.672 Pain in left foot; Z98.890 Other specified postprocedural states | CPT/HCPCS: 99213 ==

== ENCOUNTER 2024-11-19 09:53 | Outpatient (CLI) | payer MEDICARE, SELFPAY ==
[2024-11-19 13:16] LABS: ALT 31 U/L (14-59); AST 20 U/L (15-37); Albumin 4.1 g/dL (3.4-5.0); Alkaline Phosphatase 65 U/L (46-116); Anion Gap 7.7 mmol/L (3-11); BUN 16 mg/dL (7-18); Bilirubin, Total 0.5 mg/dL (0.2-1.0); CO2 29.3 mmol/L (21.0-32.0); Calcium 9.5 mg/dL (8.5-10.1); Calculated LDL 148 mg/dL (<100); Chloride 103 mmol/L (98-107); Cholesterol 264 mg/dL (<200); Estimated GFR 93.56 (mL/min/1.73m2); Glucose 112 mg/dL (74-106); HDL Cholesterol 66 mg/dL (>or=50); Potassium 4.3 mmol/L (3.5-5.1); Sodium 140 mmol/L (136-145); TSH (W/Ref FT4) 2.27 uIU/mL (0.36-3.74); Total Protein 7.7 g/dL (6.4-8.2); Triglyceride 250 mg/dL (<150)
[2024-11-19 13:23] LABS: Hemoglobin A1C 5.7 % (<5.7)
== END 2024-11-19 09:54 | disposition home or self-care (01) ==
LOC: LOS 09:53
PROVIDERS: PCP Nurse Practitioner Family; Referring Provider Nurse Practitioner Family; Visit Provider Nurse Practitioner Family
DX: E03.9 Hypothyroidism, unspecified (principal); K75.81 Nonalcoholic steatohepatitis (NASH); R73.03 Prediabetes; E78.5 Hyperlipidemia, unspecified
CPT/HCPCS: 36415; 80053; 80061; 83036; 84443

== ENCOUNTER → 2024-12-08 08:00 | Outpatient (BNVA) | payer MEDICARE, SELFPAY | PROVIDERS: PCP Nurse Practitioner Family; Referring Provider Nurse Practitioner Family; Visit Provider Podiatrist | DX: L60.0 Ingrowing nail (principal); M79.671 Pain in right foot | CPT/HCPCS: 11750 ==

== ENCOUNTER → 2024-12-29 08:23 | Outpatient (BNVA) | payer MEDICARE, SELFPAY | PROVIDERS: PCP Nurse Practitioner Family; Referring Provider Nurse Practitioner Family; Visit Provider Podiatrist | DX: M79.671 Pain in right foot (principal); M79.672 Pain in left foot; L60.0 Ingrowing nail | CPT/HCPCS: 11750 ==

== ENCOUNTER → 2025-01-18 09:49 | Outpatient (BNVA) | payer MEDICARE, SELFPAY | PROVIDERS: PCP Nurse Practitioner Family; Referring Provider Nurse Practitioner Family; Visit Provider Podiatrist | DX: L60.0 Ingrowing nail (principal); M79.671 Pain in right foot; M79.672 Pain in left foot | CPT/HCPCS: 99213 ==

== ENCOUNTER → 2025-02-15 08:50 | Outpatient (BNVA) | payer MEDICARE, SELFPAY | PROVIDERS: PCP Nurse Practitioner Family; Referring Provider Nurse Practitioner Family; Visit Provider Podiatrist | DX: M79.672 Pain in left foot (principal); S90.32XA Contusion of left foot, initial encounter; W22.8XXA Striking against or struck by other objects, initial encounter | CPT/HCPCS: 99213 ==